=== PATIENT | female | born 1940 | race Caucasian/White ===

== ENCOUNTER 2018-03-02 00:27 | Inpatient (IN) | payer OTHER, MEDICARE ==
[~2018-03-02] VITALS: Ht 149.9 cm; Wt 43.7 kg
--- NOTE | 2018-03-02 00:27 | NUR ---
PATIENT PRESENTS TO ED BIBA WITH SOB. PT DENIES N/V/D; SKIN IS PINK/WARM/DRY; AAOX2 WITH EVEN AND STEADY GAIT; LUNGS CLEAR BL; HR EVEN AND REGULAR; PT DENIES ANY FEVER, CP, OR COUGH AT THIS TIME; PATIENT STATES PAIN OF 0/10 AT THIS TIME; VSS; PATIENT POSITIONED FOR COMFORT; HOB ELEVATED; BEDRAILS UP X2; BED DOWN. ER MD MADE AWARE OF PT STATUS.
[2018-03-02 00:32] VITALS: BP 136/82
--- NOTE | 2018-03-02 00:33 | NUR ---
PT BIBA TO ER BED 02
[2018-03-02 00:35] VITALS: BP 98/65
[2018-03-02] MEDS ORDERED: ALBUTEROL SULFATE/IPRATROPIU 3 ML SOL IH ONE (00:35)
[2018-03-02] MEDS ORDERED: NACL 0.9% 1,000 ML IV ONE (00:35)
--- NOTE | 2018-03-02 00:53 | NUR ---
0048 PLACED PT ON BIPAP IPAP12 EPAP 6 RR 14 FIO2 50%. WILL CONTINUE TO MONITOR
[2018-03-02 01:19] LABS: HEMATOCRIT 30.2 % (36-48); HEMOGLOBIN 9.2 g/dL (12.0-16.0); MEAN CORPUSCULAR HEMOGLOBIN 25 pg (27-31); MEAN CORPUSCULAR HGB CONC 31 g/dL (33-37); MEAN CORPUSCULAR VOLUME 81.9 fL (80-94); PLATELET COUNT (AUTO) 468 K/uL (140-450); RED BLOOD CELL COUNT(AUTO) 3.68 MIL/uL (4.20-5.40); RED CELL DISTRIBUTION WIDTH 27.3 % (11.6-13.7); WHITE BLOOD COUNT (AUTO) 11.4 K/uL (4.8-10.8)
[2018-03-02 01:22] LABS: ALBUMIN 2.3 g/dL (3.4-5.0); ANION GAP 10.7 (8-16); ASPARTATE AMINOTRANSFERASE 25 U/L (15-37); CARBON DIOXIDE 34.6 mmol/L (21-32); CHLORIDE 101 mmol/L (98-107); CREATININE 0.6 mg/dL (0.6-1.3); GLUCOSE 283 mg/dL (74-106); SODIUM SERUM 144 mmol/L (136-145); TOTAL BILIRUBIN 0.3 mg/dL (0.0-1.0); UREA NITROGEN, BLOOD 19 mg/dL (7-18)
[2018-03-02 01:29] LABS: PROTHROMBIN TIME 11.4 secs (10.8-13.4)
[2018-03-02 01:35] LABS: LYMPHOCYTES % (MANUAL) 1 % (20-46)
[2018-03-02 01:35] LABS: APPEARANCE,URINE CLEAR (CLEAR); BILIRUBIN,URINE NEGATIVE (NEGATIVE); BLOOD, URINE NEGATIVE (NEGATIVE); COLOR,URINE YELLOW (YELLOW); LEUKOCYTE ESTERASE ,URINE NEGATIVE (NEGATIVE); NITRITE, URINE NEGATIVE (NEGATIVE); PH,URINE 6.5 (5.0-9.0); UGLUCOSE 3+ (NEGATIVE)
[2018-03-02] MEDS ORDERED: PIPERACILLIN/TAZOBACTAM 3.375 GM in DEXTROSE 5% 50 ML IV ONE (01:40)
[2018-03-02 01:47] LABS: POTASSIUM 2.3 mmol/L (3.5-5.1)
[2018-03-02] MEDS ORDERED: KCL 20 MEQ/WATER INJ PREMIX 200 ML IV ONE (01:50)
[2018-03-02 02:01] LABS: RBC,URINE 0-5 (RARE) /HPF (0-5); WBC,URINE 0-5 (RARE) /HPF (0-5)
--- NOTE | 2018-03-02 02:10 | NUR ---
Tiffany malik in [facility] - 03/02/18 at [address] [facility] TO UPDATE ON PATIENT STATUS,
--- NOTE | 2018-03-02 02:14 | NUR ---
[facility] ROTOR BLADE INSTALLER REFUSED TO USE MEDIPORT ACCESS FOR STAT CT. WILL CONTINUE TO GAIN IV ACCESS
[2018-03-02] MEDS ORDERED: ELA10 PO (02:21)
[2018-03-02] MEDS ORDERED: ATOR40TA PO (02:21)
[2018-03-02] MEDS ORDERED: METO25TE2 PO (02:21)
[2018-03-02] MEDS ORDERED: DOCU-299 PO (02:21)
[2018-03-02] MEDS ORDERED: LEVO0.2T5 PO (02:21)
[2018-03-02] MEDS ORDERED: PANT40EC PO (02:21)
[2018-03-02] MEDS ORDERED: SENN-73 PO (02:21)
[2018-03-02] MEDS ORDERED: FURO-572 PO (02:21)
[2018-03-02] MEDS ORDERED: DULO20EC PO (02:21)
[2018-03-02] MEDS ORDERED: HYDR2TAB6 PO (02:21)
[2018-03-02] MEDS ORDERED: ZOLP10TA1 PO (02:21)
[2018-03-02] MEDS ORDERED: SUCR1TAB35 PO (02:21)
[2018-03-02] MEDS ORDERED: ALBU0.0912 IH (02:21)
[2018-03-02] MEDS ORDERED: ALPR0.252 PO (02:21)
[2018-03-02] MEDS ORDERED: ONDA4TAB PO (02:21)
[2018-03-02] MEDS ORDERED: HYDROcodone/APAP 7.5/325 MG 1 TAB PO PRN (03:15)
[2018-03-02] MEDS ORDERED: ACETAMINOPHEN 325 MG TAB PO PRN (03:15)
[2018-03-02] MEDS ORDERED: ONDANSETRON 4 MG/2 ML VIAL IVP PRN (03:15)
[2018-03-02 03:39] LABS: FREE T4 (FREE THYROXINE) 1.25 ng/dL (0.76-1.46); MAGNESIUM 1.5 mg/dL (1.8-2.4); THYROID STIMULATING HORMONE 2.52 uIU/mL (0.34-3.74)
--- NOTE | 2018-03-02 03:44 | NUR ---
Pt report given to IVAN JORDAN. Transfer of care at this time.
--- NOTE | 2018-03-02 03:45 | NUR ---
RECEIVED PT FROM ED NURSE. NO ACUTE DISTRESS NOTED. WILL CONTINUE TO OBSERVE.
--- NOTE | 2018-03-02 03:50 | NUR ---
PT AAOX2. PT ABLE TO MAKE NEEDS KNOWN. PT CURRENTLY ON BIPAP @ 50% FIO2. DIMINISHED BREATH SOUNDS @ THIS TIME. HR 90-100S, NO EDEMA NOTED. ABD SOFT NON DISTENDED. PT VOIDING IN BEDPAN X1. MEDIPORT NOTED R UPPER CHEST, IV PATENT. NEW PERIPHERAL IV STARTED L HAND. SKIN INTACT, NO ACUTE DISTRESS NOTED WILL CONTINUE TO OBSERVE.
[2018-03-02] MEDS ORDERED: MAG SULF 2000 MG/WATER PREMIX 50 ML IV SCH ×2 (04:35→09:28)
[2018-03-02] MEDS ORDERED: SENNA 8.6 MG TAB PO PRN (04:40)
[2018-03-02] MEDS ORDERED: ALPRAZolam 0.25 MG TAB PO PRN (04:40)
[2018-03-02] MEDS ORDERED: ZOLPIDEM 10 MG TAB PO PRN (04:40)
--- NOTE | 2018-03-02 04:48 | NUR ---
PATIENT ASKED TO BE TAKEN OFF BIPAP AT THIS TIME. PLACED PT ON 3LNC. PT DOES NOT HAVE ANY SOB AT THIS TIME. WILL CONTINUE TO MONITOR PATIENT.
--- NOTE | 2018-03-02 05:45 | NUR ---
DR. HUGHES @ BEDSIDE.
[2018-03-02] MEDS ORDERED: PIPERACILLIN/TAZOBACTAM 2.25 GM in DEXTROSE 5% 50 ML IV SCH (06:00)
[2018-03-02] MEDS ORDERED: PIPERACILLIN/TAZOBACTAM 3.375 GM VIAL IV ONE (06:25)
--- NOTE | 2018-03-02 06:30 | NUR ---
PT TRANSPORTED TO SCAN NURSE AND MONITOR
[2018-03-02] MEDS ORDERED: PIPER/TAZO 3.375GM/D5W PREMIX 50 ML IV SCH (06:40)
--- NOTE | 2018-03-02 07:30 | NUR ---
REPORT GIVEN TO DAY NURSE. NO ACUTE DISTRESS NOTED. PT CURRENTLY AT [facility] FOR VQ SCAN
--- NOTE | 2018-03-02 07:33 | NUR ---
PT OFF UNIT
--- NOTE | 2018-03-02 07:35 | NUR ---
RECEIVED REPORT FROM NIGHT NURSE. PT CURRENTLY AT VQ SCAN. PT IS AAOX2, ABLE TO MAKE NEEDS KNOWN AND FOLLOWS COMMANDS. PT IS [place]. SINUS TACHYCARDIA ON MONITOR. ON O2 AT 6 LPM/NC, O2 SAT 93%. PT C/O SOB WHILE LAYING DOWN DURING VQ SCAN. MEDIPORT NOTED ON RIGHT UPPER CHEST. PERIPHERAL IV G22 TO LEFT HAND PATENT AND INTACT. NO EDEMA NOTED. NO ACUTE DISTRESS AT THIS TIME. WILL CONTINUE TO MONITOR.
--- NOTE | 2018-03-02 07:50 | NUR ---
PT C/O GENERALIZED PAIN AND FEELS ANXIOUS. PAIN AND ANTI-ANXIETY MEDICATIONS ADMINISTERED ORDERED. PT TOLERATED WELL.
[2018-03-02] MEDS: HYDROmorphone 2 MG TAB PO PRN ×2 (07:55→11:56)
[2018-03-02 08:00] VITALS: BP 142/76
--- NOTE | 2018-03-02 08:40 | NUR ---
BACK FROM VQ SCAN. PT C/O SOB. VITAL SIGNS STABLE. PT SEEN BY DR. SANCHEZ AT BEDSIDE. WILL FOLLOW UP ON ORDERS AND CONTINUE TO MONITOR.
--- NOTE | 2018-03-02 08:55 | NUR ---
DR. TUBBS AND RESIDENT GROUP IN TO SEE PT. WILL FOLLOW UP WITH NEW ORDERS.
[2018-03-02] MEDS ORDERED: ATORVASTATIN 20 MG TAB PO SCH (09:00)
[2018-03-02] MEDS ORDERED: AMITRIPTYLINE 10 MG TAB PO SCH (09:00)
[2018-03-02] MEDS ORDERED: PANTOPRAZOLE 40 MG TABEC PO SCH (09:00)
[2018-03-02] MEDS ORDERED: FUROSEMIDE 20 MG TAB PO SCH (09:00)
[2018-03-02] MEDS ORDERED: METOPROLOL SUCCINATE 50 MG TABER PO SCH (09:00)
[2018-03-02] MEDS ORDERED: DULoxetine 30 MG CAPDR PO SCH ×2 (09:00→09:08)
[2018-03-02] MEDS ORDERED: DOCUSATE SODIUM 100 MG GELCAP PO SCH (09:00)
[2018-03-02] MEDS ORDERED: FUROSEMIDE 40 MG/4 ML VIAL IVP SCH (09:00)
[2018-03-02] MEDS: SUCRALFATE 1 GM TAB PO SCH ×2 (09:33→11:56)
--- NOTE | 2018-03-02 10:26 | NUR ---
PATIENT HAS BEEN SCREENED AND CATEGORIZED HIGH NUTRITION RISK. PATIENT WILL BE SEEN WITHIN 1-2 DAYS OF ADMISSION. 03/02/18 - 03/03/[address]
[2018-03-02 10:30] LABS: HEMATOCRIT 30.2 % (36-48); HEMOGLOBIN 9.2 g/dL (12.0-16.0); MEAN CORPUSCULAR HEMOGLOBIN 25 pg (27-31); MEAN CORPUSCULAR HGB CONC 30 g/dL (33-37); MEAN CORPUSCULAR VOLUME 82.1 fL (80-94); PLATELET COUNT (AUTO) 484 K/uL (140-450); RED BLOOD CELL COUNT(AUTO) 3.67 MIL/uL (4.20-5.40)
[2018-03-02] MEDS ORDERED: ZOLPIDEM 5 MG TAB PO PRN (10:45)
--- NOTE | 2018-03-02 10:45 | NUR ---
SON AND BROTHER AT BEDSIDE. UPDATES GIVEN ON PT'S CONDITION. VITAL SIGNS STABLE. SAFETY PRECAUTIONS IN PLACE.
[2018-03-02 10:46] LABS: ANION GAP 7.9 (8-16); CARBON DIOXIDE 34.2 mmol/L (21-32); CHLORIDE 102 mmol/L (98-107); CREATININE 0.5 mg/dL (0.6-1.3); GLUCOSE 146 mg/dL (74-106); POTASSIUM 3.1 mmol/L (3.5-5.1); SODIUM SERUM 141 mmol/L (136-145); UREA NITROGEN, BLOOD 17 mg/dL (7-18)
[2018-03-02 10:49] LABS: LYMPHOCYTES % (MANUAL) 1 % (20-46); MONOCYTES % (MANUAL) 2 % (5-12)
[2018-03-02 10:50] LABS: MAGNESIUM 1.2 mg/dL (1.8-2.4); PHOSPHORUS 3.9 mg/dL (2.5-4.9)
[2018-03-02 12:00] VITALS: BP 140/83
[2018-03-02] MEDS ORDERED: PIPER/TAZO 2.25GM/D5W PREMIX 50 ML IV SCH (12:00)
--- NOTE | 2018-03-02 13:30 | NUR ---
DR. SALCIDO MADE AWARE OF MAGNESIUM LEVEL OF 1.2, ALSO AWARE THAT BLOOD WAS DRAWN BEFORE PT RECEIVED IV MAGNESIUM. WILL FOLLOW UP ON ORDERS.
--- NOTE | 2018-03-02 14:28 | NUR ---
03/02/18 RD INITIAL ASSESSMENT COMPLETED PLEASE REFER TO NUTRITION ASSESSMENT UNDER CARE ACTIVITY FOR ESTIMATED NUTRITIONAL NEEDS. 1. RECOMMEND CLEAR LIQUID DIET TOLERATED 2. RECOMMEND NUTRITION SUPPORT: PPN D 12.5%, AA 4.25% @ 60 ML/HR WITH 10% LIPIDS AT 125 ML VIA PERIPHERAL LINE, PER MD AND PHARMACIST. PROVIDES 1107 KCAL, 61 GM PROTEIN, TOTAL VOLUME 1440 ML, GIR 2.8 MG CHO/KG/MIN. MEETS 85% PT ENERGY NEEDS, 87% PT PROTEIN NEEDS. 3. RD TO FOLLOW-UP 2-3 DAYS, HIGH RISK XIMENA ROSALES RD
[2018-03-02] MEDS ORDERED: NACL 0.9% 1,000 ML IV SCH (14:35)
--- NOTE | 2018-03-02 14:50 | NUR ---
DR. SALCIDO AT BEDSIDE SPEAKING WITH PT AND WITH PT'S BROTHER ON PHONE. WILL FOLLOW UP.
--- NOTE | 2018-03-02 15:45 | NUR ---
PT AND BROTHER, ART, SIGNED AMA FORM, AND WENT HOME VIA PRIVATE VEHICLE. VITAL SIGNS STABLE, NO S/SX OF ACUTE DISTRESS UPON DISCHARGE.
[2018-03-02 15:50] VITALS: BP 148/91
[2018-03-03] MEDS ORDERED: DULoxetine 30 MG CAPDR PO SCH (09:00)
[2018-03-03 15:09] LABS: FOLIC ACID 11.1 ng/mL (>3.0)
== END 2018-03-02 15:45 | disposition left against medical advice (07) | DRG 871 ==
LOC: MED 00:56 → MIC 03:15
PROVIDERS: ADMIT Family Medicine Sports Medicine; ATTEND Family Medicine Sports Medicine
PROC: 5A09357 Assistance with Respiratory Ventilation, Less than 24 Consecutive Hours, Continuous Positive Airway Pressure (ICD-10-PCS; principal; 2018-03-02)
DX: A41.9 Sepsis, unspecified organism (principal); E43 Unspecified severe protein-calorie malnutrition; J96.01 Acute respiratory failure with hypoxia; N17.0 Acute kidney failure with tubular necrosis; J15.6 Pneumonia due to other Gram-negative bacteria; C25.9 Malignant neoplasm of pancreas, unspecified; I50.43 Acute on chronic combined systolic (congestive) and diastolic (congestive) heart failure; D64.9 Anemia, unspecified; Z68.1 Body mass index [BMI] 19.9 or less, adult; E83.42 Hypomagnesemia; M62.50 Muscle wasting and atrophy, not elsewhere classified, unspecified site; E87.6 Hypokalemia; F41.9 Anxiety disorder, unspecified; E78.5 Hyperlipidemia, unspecified; E11.65 Type 2 diabetes mellitus with hyperglycemia; I25.5 Ischemic cardiomyopathy; I25.10 Atherosclerotic heart disease of native coronary artery without angina pectoris; Z53.21 Procedure and treatment not carried out due to patient leaving prior to being seen by health care provider; M79.7 Fibromyalgia; Z85.028 Personal history of other malignant neoplasm of stomach; Z85.42 Personal history of malignant neoplasm of other parts of uterus; Z86.73 Personal history of transient ischemic attack (TIA), and cerebral infarction without residual deficits; Z87.11 Personal history of peptic ulcer disease; Z87.891 Personal history of nicotine dependence; Z88.5 Allergy status to narcotic agent; Z88.8 Allergy status to other drugs, medicaments and biological substances; I25.2 Old myocardial infarction; Z95.810 Presence of automatic (implantable) cardiac defibrillator; Z90.710 Acquired absence of both cervix and uterus; Z90.49 Acquired absence of other specified parts of digestive tract; Z90.11 Acquired absence of right breast and nipple; Z91.018 Allergy to other foods; Z66 Do not resuscitate
CPT/HCPCS: 36415; 36600; 71045; 78582; 80048; 80053; 81001; 82150; 82607; 82728; 82746; 82803; 83036; 83540; 83605; 83690; 83735; 83880; 84100; 84439; 84443; 84484; 85025; 85045; 85610; 85730; 87040; 87081; 87186; 93005; 94640; 94660; 96360; 99291; C1758; J1940; J2543; J3475; J3480; J7030; J7060; J7620

== ENCOUNTER 2018-03-02 22:46 | Inpatient (IN) | payer OTHER, MEDICARE ==
[~2018-03-02] VITALS: Ht 165.1 cm; Wt 40.4 kg
[~2018-03-02 22:46] MED LIST: ALBU0.0912 IH; ALPR0.252 PO; ATOR40TA PO; DOCU-299 PO; DULO20EC PO; ELA10 PO; FURO-572 PO; HYDR2TAB6 PO; LEVO0.2T5 PO; METO25TE2 PO; ONDA4TAB PO; PANT40EC PO; SENN-73 PO; SUCR1TAB35 PO; ZOLP10TA1 PO
[2018-03-02 22:50] VITALS: BP 128/79
--- NOTE | 2018-03-02 22:50 | NUR ---
Pt presents to ER with SOB and Dyspnea. Arrived via EMS from home. Pt was admitted to ICU on 03/01/18 and discharged today. Pt has retractions with shallow rappid even breaths. Skin is pale and dry. Awake but unable to verbalize d/t sob. Wheezes and diminished lung sounds heard bilaterally. ER MD made aware. Respiratory at bedside. Continue to monitor.
[2018-03-02] MEDS ORDERED: ALBUTEROL 0.083% 2.5 MG/3 ML NEBU INH ONE (23:10)
[2018-03-02 23:11] VITALS: BP 132/73
[2018-03-03] MEDS ORDERED: fentaNYL 0.05 MG/ML VIAL IVP ONE (00:30)
[2018-03-03 00:47] LABS: HEMATOCRIT 28.4 % (36-48); HEMOGLOBIN 8.9 g/dL (12.0-16.0); MEAN CORPUSCULAR HEMOGLOBIN 26 pg (27-31); MEAN CORPUSCULAR HGB CONC 31 g/dL (33-37); MEAN CORPUSCULAR VOLUME 81.6 fL (80-94); PLATELET COUNT (AUTO) 405 K/uL (140-450); RED BLOOD CELL COUNT(AUTO) 3.49 MIL/uL (4.20-5.40)
[2018-03-03] MEDS ORDERED: HYDROcodone/APAP 7.5/325 MG 1 TAB PO PRN (00:55)
[2018-03-03 00:59] LABS: WHITE BLOOD COUNT (AUTO) 16.8 K/uL (4.8-10.8)
[2018-03-03 01:00] LABS: RED CELL DISTRIBUTION WIDTH 27.2 % (11.6-13.7)
[2018-03-03 01:01] LABS: LYMPHOCYTES % (MANUAL) 0 % (20-46); MONOCYTES % (MANUAL) 1 % (5-12)
[2018-03-03 01:03] LABS: ALBUMIN 2.2 g/dL (3.4-5.0); ANION GAP 11.7 (8-16); ASPARTATE AMINOTRANSFERASE 39 U/L (15-37); CARBON DIOXIDE 33.1 mmol/L (21-32); CHLORIDE 101 mmol/L (98-107); CREATININE 0.6 mg/dL (0.6-1.3); GLUCOSE 260 mg/dL (74-106); SODIUM SERUM 143 mmol/L (136-145); TOTAL BILIRUBIN 0.3 mg/dL (0.0-1.0); UREA NITROGEN, BLOOD 25 mg/dL (7-18)
[2018-03-03 01:09] LABS: PROTHROMBIN TIME 12.1 secs (10.8-13.4)
--- NOTE | 2018-03-03 01:22 | NUR ---
Critical lab recieved from laborator: Troponin 0.[address] Fung notified immediately.
[2018-03-03 01:23] LABS: POTASSIUM 2.8 mmol/L (3.5-5.1)
[2018-03-03 01:39] LABS: MAGNESIUM 1.8 mg/dL (1.8-2.4); PHOSPHORUS 3.6 mg/dL (2.5-4.9)
[2018-03-03 01:45] VITALS: BP 108/68
--- NOTE | 2018-03-03 01:45 | NUR ---
RECEIVED PATIENT REPORT AT BEDSIDE FROM ER NURSE. PATIENT AAO X2. PATIENT ON BIPAP SETTING IPAP 10 EPAP 5. FIO2 50%. . RT AT BEDSIDE. NO S/S OF DISTRESS. NO SOB AT THIS TIME. MEDIPORT IN RIGHT UPPER CHEST. SKIN TEAR AND BRUISING NOTED ON LEFT ARM PICTURE TAKEN. BED LOWERED CALL LIGHT IN REACH. MRSA NARES TAKEN PROTOCOL AND SEND TO THE LAB. DAUGHTER HELPED WITH ADMITTING INFORMATION. DR WING AT BEDSIDE. WILL CONTINUE TO MONITOR.
--- NOTE | 2018-03-03 02:00 | NUR ---
Report given and care transfered to Carla RN room 122A. VSS
[2018-03-03] MEDS ORDERED: HYDROmorphone 2 MG TAB PO PRN (02:45)
[2018-03-03] MEDS ORDERED: ALPRAZolam 0.25 MG TAB PO PRN (02:45)
[2018-03-03] MEDS ORDERED: ZOLPIDEM 10 MG TAB PO PRN (02:45)
[2018-03-03] MEDS ORDERED: FUROSEMIDE 20 MG/2 ML VIAL IVP ONE (02:55)
[2018-03-03] MEDS ORDERED: KCL 20 MEQ/WATER INJ PREMIX 200 ML IV SCH (03:00)
--- NOTE | 2018-03-03 03:00 | NUR ---
ON BIPAP. NO S/S OF DISTRESS. NO SOB AT THIS TIME. MEDICATED PT WITH K-RIDER AND LASIX ORDERED. ON TELE RHYTUM ST.
[2018-03-03 04:00] VITALS: BP 90/54
--- NOTE | 2018-03-03 04:05 | NUR ---
WENT TO REPOSITIONED PT. CHANGED BED LINEN. WILL CONTINUE TO MONITOR.
--- NOTE | 2018-03-03 05:00 | NUR ---
RT CAME TO SEE PATIENT. PT IS STABLE NO DISTRESS NO SOB ON TELE SR. WILL CONTINUE TO MONITOR. AND REPOSITIONED Q2HRS.
--- NOTE | 2018-03-03 07:31 | NUR ---
GAVE REPORT TO DAY SHIFT DERRELL RN NURSE AT BEDSIDE FOR CONTINUITY OF CARE.
--- NOTE | 2018-03-03 07:32 | NUR ---
RECEIVED REPORT FROM C WINFORMS DEVELOPER NURSE SAEED AT BEDSIDE FOR CONTINUITY OF CARE. PT IS ASLEEP. AWAKES WHEN CALLED. INTRODUCED SELF AND UPDATED BOARD. PT ON BIPAP. RR 18. NO SOB. O2 SAT95%. LUNG SOUNDS CLEAR ON AUSCULTATION. PT DENIES PAIN. L ARM SKIN TEARS AND BUE SCABS AND BRUISES NOTED. MEDIPORT TO R UPPER CHEST INTACT WITH NS @5ML/HR. PT WENT BACK TO SLEEP. BREAKFAST TRAY AT TABLE. NO COMPLAINTS AT THIS TIME. BED IN LOW POSITION, WHEELS LOCKED, CALL LIGHT WITHIN REACH. WILL CONTINUE TO MONITOR.
[2018-03-03 08:00] VITALS: BP 98/57
--- NOTE | 2018-03-03 08:40 | NUR ---
PLACED PT ON 4LPM NC HR 95 SAT 100 RR 18. WILL CONT TO MONITOR PT.
[2018-03-03] MEDS: ATORVASTATIN 20 MG TAB PO SCH (08:51)
[2018-03-03] MEDS: PANTOPRAZOLE 40 MG TABEC PO SCH (08:51)
[2018-03-03] MEDS: AMITRIPTYLINE 10 MG TAB PO SCH (08:51)
[2018-03-03] MEDS: DOCUSATE SODIUM 100 MG GELCAP PO SCH ×2 (08:51→20:41)
[2018-03-03] MEDS: METOPROLOL SUCCINATE 50 MG TABER PO SCH (08:52)
[2018-03-03] MEDS: DULoxetine 30 MG CAPDR PO SCH (08:52)
[2018-03-03] MEDS: SENNA 8.6 MG TAB PO SCH (08:52)
[2018-03-03] MEDS: SUCRALFATE 1 GM TAB PO SCH (08:52)
--- NOTE | 2018-03-03 08:52 | NUR ---
ADMINISTERED SCHEDULED MEDS. PT TOLERATED MEDS WELL. PT REFUSED TO EAT BREAKFAST TRAY. STATED SHE DID NOT LIKE IT AND SAID "I WILL EAT LATER" ON NC 4L/MIN. O2 SAT 100%. NO SIGNS OF DISTRESS. PT WENT BACK TO SLEEP. WILL CONTINUE TO MONITOR.
[2018-03-03] MEDS: FUROSEMIDE 20 MG TAB PO SCH (08:53)
[2018-03-03] MEDS ORDERED: DOCUSATE SODIUM 100 MG GELCAP PO SCH (09:00)
--- NOTE | 2018-03-03 10:29 | NUR ---
PATIENT HAS BEEN SCREENED AND CATEGORIZED HIGH NUTRITION RISK. PATIENT WILL BE SEEN WITHIN 1-2 DAYS OF ADMISSION. 03/03/18 - 03/04/[address]
[2018-03-03 12:00] VITALS: BP 104/62
[2018-03-03] MEDS ORDERED: TPN PER PHARMACY MC PRN (12:20)
[2018-03-03] MEDS: DEXT 5% / NACL 0.45% 1,000 ML IV SCH (12:54)
--- NOTE | 2018-03-03 13:14 | NUR ---
REPORTED TO DR. SALCIDO THAT PT REFUSING BISHOP CATHETER INSERT. PT ASKED TO SPEAK TO
--- NOTE | 2018-03-03 14:44 | NUR ---
03/03/18 RD INITIAL ASSESSMENT COMPLETED PLEASE REFER TO NUTRITION ASSESSMENT UNDER CARE ACTIVITY FOR ESTIMATED NUTRITIONAL NEEDS. 1. RECOMMEND CLEAR LIQUID DIET TOLERATED 2. RECOMMEND NUTRITION SUPPORT: PPN D 12.5%, AA 4.25% @ 60 ML/HR WITH 10% LIPIDS AT 125 ML VIA PERIPHERAL LINE, PER MD AND PHARMACIST. PROVIDES 1107 KCAL, 61 GM PROTEIN, TOTAL VOLUME 1440 ML, GIR 2.8 MG CHO/KG/MIN. MEETS 85% PT ENERGY NEEDS, 87% PT PROTEIN NEEDS. 3. RD TO FOLLOW-UP 2-3 DAYS, HIGH RISK XIMENA ROSALES RD
[2018-03-03 16:00] VITALS: BP 110/60
[2018-03-03] MEDS: CHLORHEXADINE GLUC 2% CLOTH TP SCH (16:36)
[2018-03-03] MEDS: MUPIROCIN 2% OINT 22 GM TUBE TP SCH (16:36)
--- NOTE | 2018-03-03 18:50 | NUR ---
DR. KENDALL AND DR. HILL CAME IN AND SPOKE WITH PT AND PT'S DAUGHTER.
[2018-03-03] MEDS: HYDROcodone/APAP 10/325 MG 1 TAB TAB PO PRN (18:53)
--- NOTE | 2018-03-03 19:25 | NUR ---
RECEIVED FROM AM RN IN BED AWAKE AND PT.DAUGHTER IN HERE WATCHING OVER HER. PT. ABLE TO VERBALIZE NEEDS WELL. NO SOB AT THIS TIME. NO PAIN AT THIS TIME. RE-ORIENTED TO CALL LIGHT USE FOR HELP AND CARE PLANS FOR THE NIGHT DISCUSSED WITH LETTY. TELEMETRY MONITORING.
--- NOTE | 2018-03-03 19:25 | NUR ---
ENDORSED TO CLIENT EXECUTIVE NURSE ZACH AT BEDSIDE FOR CONTINUITY OF CARE. PT IN STABLE CONDITION,
[2018-03-03 20:38] VITALS: BP 118/65
[2018-03-03] MEDS ORDERED: HYDROmorphone 2 MG TAB ONE (20:39)
[2018-03-03] MEDS: PIPER/TAZO 2.25GM/D5W PREMIX 50 ML IV SCH (20:41)
[2018-03-03] MEDS: HYDROmorphone 2 MG TAB PO SCH (20:41)
--- NOTE | 2018-03-03 21:50 | NUR ---
EDVIN AND ABLE TO TALK WITH RESIDENT MD RE: PT. TALKED WITH HER EARLIER THAT SHE NEEDS HER DILAUDID P.O. TIMING CHANGED FROM Q 8H TO Q 6H. RESIDENT MD STATED THAT SHE WILL CHANGE IT.
--- NOTE | 2018-03-03 22:03 | NUR ---
PT. SLEEPING AT THIS TIME. DAUGHTER LEFT. P.O. DILAUDID GIVEN EFFECTIVE FOR HER. TELEMETRY MONITORING.
--- NOTE | 2018-03-03 22:58 | NUR ---
RESIDENT MD FRANCISCO INFORMED OF LAB RESULT FOR BLOOD CULTURE FINDINGS GRAM POSITIVE COCCI IN PAIRS AND CHAINS SEEN. AWARE. NO ORDERS GIVEN.
[2018-03-04] VITALS (7 sets, daily range): BP systolic 114–140; BP diastolic 67–85
[2018-03-04] MEDS: HYDROmorphone 2 MG TAB PO SCH ×5 (00:29→23:49)
--- NOTE | 2018-03-04 00:30 | NUR ---
PT. REQUESTED FOR PAIN RELIEVER. "I FEEL PAIN NOW" MEDICATED WITH DILAUDID P.O. ORDERED. ENCOURAGED TO USE CALL LIGHT FOR ANY HELP SHE MAY NEED. RE-ORIENTED TO CALL LIGHT USE. BED ALARM ON.
--- NOTE | 2018-03-04 02:37 | NUR ---
PT. ASSISTED TO TURN TO SIDES BY FLIGHT OPERATIONS DISPATCH CLERK. PILLOW SUPPORT TO PRESSURE AREAS. NO COMPLAINTS DONE. TELEMETRY MONITORING. CALL LIGHT WITH IN REACH.
[2018-03-04] MEDS: PIPER/TAZO 2.25GM/D5W PREMIX 50 ML IV SCH ×3 (05:10→20:37)
[2018-03-04 06:25] LABS: BASOPHILS % (AUTO) 0.1 % (0.0-2.0); EOSINOPHILS # (AUTO) 0.3 K/uL (0-0.4); EOSINOPHILS % (AUTO) 3.1 % (0.0-4.0); HEMATOCRIT 27.9 % (36-48); HEMOGLOBIN 8.8 g/dL (12.0-16.0); LYMPHOCYTES # (AUTO) 1.2 K/uL (2.5-16.5); LYMPHOCYTES % (AUTO) 11.8 % (20.5-51.1); MEAN CORPUSCULAR HEMOGLOBIN 26 pg (27-31); MEAN CORPUSCULAR HGB CONC 32 g/dL (33-37); MEAN CORPUSCULAR VOLUME 82.3 fL (80-94); MONOCYTES # (AUTO) 0.6 K/uL (0.8-1.0); MONOCYTES % (AUTO) 5.8 % (1.7-9.3); NEUTROPHILS # (AUTO) 8.2 K/uL (1.8-7.7); NEUTROPHILS % (AUTO) 79.2 % (42.2-75.2); PLATELET COUNT (AUTO) 376 K/uL (140-450); RED BLOOD CELL COUNT(AUTO) 3.39 MIL/uL (4.20-5.40); RED CELL DISTRIBUTION WIDTH 27.3 % (11.6-13.7); WHITE BLOOD COUNT (AUTO) 10.4 K/uL (4.8-10.8)
--- NOTE | 2018-03-04 06:43 | NUR ---
SLEEPING AT THIS TIME. CALL LIGHT WITH IN REACH. BLOOD SPECIMEN TAKEN . MEDI PORT IN PLACE AND PATENT. NO BLEEDING NOTED. NEEDS ANTICIPATED AND MET. MAXIMUM CARE. TELEMETRY MONITORING.
[2018-03-04 07:15] LABS: ALBUMIN 2.1 g/dL (3.4-5.0); ANION GAP 10.2 (8-16); ASPARTATE AMINOTRANSFERASE 34 U/L (15-37); CARBON DIOXIDE 33.8 mmol/L (21-32); CHLORIDE 100 mmol/L (98-107); CREATININE 0.4 mg/dL (0.6-1.3); GLUCOSE 110 mg/dL (74-106); SODIUM SERUM 141 mmol/L (136-145); TOTAL BILIRUBIN 0.2 mg/dL (0.0-1.0); UREA NITROGEN, BLOOD 22 mg/dL (7-18)
--- NOTE | 2018-03-04 07:20 | NUR ---
Patient's Plan of Care was discussed and reviewed with FIRE ADJUSTER: PRACHI Ho
[2018-03-04 07:21] LABS: MAGNESIUM 1.6 mg/dL (1.8-2.4); PHOSPHORUS 3.1 mg/dL (2.5-4.9)
--- NOTE | 2018-03-04 08:20 | NUR ---
PT. SON -ART CAME. EXPLAINED AND EDUCATED ABOUT CONTACT ISOLATION PRECAUTION FOR MRSA NARES POSITIVE. PT. SON -ART VERBALIZED UNDERSTANDING. PT. SON -ART WEAR GOWN, GLOVES, AND MASK BEFORE ENTERING PT. ROOM.
[2018-03-04] MEDS: PANTOPRAZOLE 40 MG TABEC PO SCH (08:45)
[2018-03-04] MEDS: ATORVASTATIN 20 MG TAB PO SCH (08:45)
[2018-03-04] MEDS: SUCRALFATE 1 GM TAB PO SCH (08:46)
[2018-03-04] MEDS: DOCUSATE SODIUM 100 MG GELCAP PO SCH ×2 (08:47→20:36)
[2018-03-04] MEDS: METOPROLOL SUCCINATE 50 MG TABER PO SCH (08:47)
[2018-03-04] MEDS: AMITRIPTYLINE 10 MG TAB PO SCH (08:48)
[2018-03-04] MEDS: SENNA 8.6 MG TAB PO SCH (08:48)
[2018-03-04] MEDS: FUROSEMIDE 20 MG TAB PO SCH (08:48)
[2018-03-04] MEDS: DULoxetine 30 MG CAPDR PO SCH (09:00)
[2018-03-04] MEDS: HYDROcodone/APAP 10/325 MG 1 TAB TAB PO PRN ×2 (09:15→21:44)
--- NOTE | 2018-03-04 09:45 | NUR ---
FLACA FROM PHARMACY SPOKE TO PT. SON -ART VIA PHONE REGARDING PT. TPN AT HOME.
--- NOTE | 2018-03-04 10:15 | NUR ---
DR. SANCHEZ CAME, REVIEWED PT. CHART.
--- NOTE | 2018-03-04 10:19 | NUR ---
INFORMED DR. SALCIDO ABOUT PT. K 3.0, MAG 1.6, AND PT. 60G CCHO DIET.
[2018-03-04] MEDS: ALPRAZolam 0.25 MG TAB PO PRN ×2 (10:25→18:44)
--- NOTE | 2018-03-04 11:00 | NUR ---
DR. SALCIDO WENT INSIDE PT. ROOM AND SPOKE TO PT. AT BEDSIDE.
[2018-03-04] MEDS ORDERED: MAG SULF 2000 MG/WATER PREMIX 50 ML IV SCH ×2 (11:08→18:00)
--- NOTE | 2018-03-04 11:45 | NUR ---
INFECTION NURSE SPOKE TO PT. FAMILY MEMBER -XIAO AND EXPLAINED AND EDUCATED ABOUT INFECTION CONTROL, CONTACT ISOLATION PRECAUTION FOR MRSA NARES POSITIVE. PT. FAMILY MEMBER -XIAO VERBALIZED UNDERSTANDING.
--- NOTE | 2018-03-04 11:54 | NUR ---
PARTY PLAN SALES AGENT -BETO WENT INSIDE PT. ROOM AND SPOKE TO PT. AND PT. FAMILY MEMBER -XIAO AT BEDSIDE.
[2018-03-04] MEDS: DEXT 5% / NACL 0.45% 1,000 ML IV SCH (13:41)
[2018-03-04] MEDS ORDERED: POTASSIUM CHLORIDE 40 MEQ, LIDOCAINE 1% 25 MG in NACL 0.9% 250 ML IV SCH (14:00)
[2018-03-04] MEDS: MUPIROCIN 2% OINT 22 GM TUBE TP SCH (16:16)
[2018-03-04] MEDS: CHLORHEXADINE GLUC 2% CLOTH TP SCH (16:17)
[2018-03-04] MEDS ORDERED: HYDR2TAB6 PO (17:16)
[2018-03-04] MEDS ORDERED: CHLO118S2 TP (17:16)
[2018-03-04] MEDS ORDERED: ATOR20TA40 PO (17:16)
[2018-03-04] MEDS ORDERED: ACET-1182 PO (17:16)
[2018-03-04] MEDS ORDERED: FURO20TA8 PO (17:16)
[2018-03-04] MEDS ORDERED: SENN-89 PO (17:16)
[2018-03-04] MEDS ORDERED: ZOLP10TA1 PO (17:16)
[2018-03-04] MEDS ORDERED: NORC10 PO (17:16)
[2018-03-04] MEDS ORDERED: METO50TE2 PO (17:16)
[2018-03-04] MEDS ORDERED: BACTO TP (17:16)
[2018-03-04] MEDS ORDERED: ONDA2SOL45 IVP (17:16)
[2018-03-04] MEDS ORDERED: HUMSLIDE SUBQ (17:16)
[2018-03-04] MEDS ORDERED: DOCU-299 PO (17:16)
[2018-03-04] MEDS ORDERED: PANT40EC28 PO (17:16)
[2018-03-04] MEDS ORDERED: GLUC-805 MC (17:16)
[2018-03-04] MEDS ORDERED: SUCR1TAB56 PO (17:16)
[2018-03-04] MEDS ORDERED: ALPR0.2518 PO (17:16)
[2018-03-04] MEDS ORDERED: Tpn Per Pharmacy MC (17:16)
[2018-03-04] MEDS ORDERED: ELA10 PO (17:16)
--- NOTE | 2018-03-04 17:58 | NUR ---
DR. HILL CAME, REVIEWED PT. CHART AND SEEN PT..
--- NOTE | 2018-03-04 18:00 | NUR ---
Dr. Rosas spoke with Dr. Montero at [facility] and accepted the patient to be transfer for possible surgery for her pancreatic cancer. Dr. Rosas spoke to me to arrange a bed. I called [facility] and spoke to Kenzie at the transfer center and was given the information related to transfer , Kenzie informed me that want H&P, face sheet, physician progress notes and order to be faxed to her at [phone] Montero wants the patient to be transfer Thursday. Dr. Rosas made aware.
--- NOTE | 2018-03-04 18:07 | NUR ---
Correction: [facility] not [facility].
--- NOTE | 2018-03-04 19:10 | NUR ---
REPORT GIVEN TO ZACH BOLDEN. IVF INFUSING WELL. IN STABLE CONDITION.
--- NOTE | 2018-03-04 19:28 | NUR ---
RECEIVED FROM AM NURSE AWAKE AND ALERT. DAUGHTER , SON AND DAUGHTER IN LAW AT BEDSIDE. CALL LIGHT WITH IN REACH. NO SOB AT THIS TIME. 02 SAT AT 97% WITH 02 PER N /C. PT. CARE PLANS FOR THE NIGHT DISCUSSED WITH HER. TELEMETRY MONITORING. IVF SITE INTACT AND NO INFILTRATION. DENIES PAIN AT THIS TIME. ENCOURAGED TO CALL IF WITH PAIN.
[2018-03-04] MEDS: ZOLPIDEM 10 MG TAB PO PRN (20:18)
[2018-03-04] MEDS: MULTIVITAMIN-12 10 ML in DEXTROSE 50% 480 ML, AMINO ACIDS 8.5% 480 ML IV SCH ×3 (20:20)
[2018-03-04] MEDS: DULOXETINE 20 MG PO SCH (20:35)
--- NOTE | 2018-03-04 20:51 | NUR ---
PAGED RESPIRATORY THERAPIST RT PT. COMPLAINED OF HARD TO BREATH. NOTED O2 GOES DOOWN FROM 96 % TO 87 % WITH 02 OF 4 LITERS. RESPIRATORY THERAPIST IN HERE TO ADJUST 02 AND CHANGE OF TUBING.
--- NOTE | 2018-03-04 21:00 | NUR ---
CALLED TO BEDSIDE FOR LOW 02 SATURATION, LOW PERFUSION READING DUE TO NAIL FAROESE, CHANGED PULSE OXIMETER SITE AND PLACED PT ON 7LPM OXIMIZER AT THIS TIME, PT 02 SAT 94-99%, WILL CONTINUE TO MONITOR AND TITRATE FIO2 ACCORDINGLY.
--- NOTE | 2018-03-04 22:46 | NUR ---
BLOOD PRESSURE AT THIS TIME 170/96. MORE RESTED AND LESS ANXIOUS RT DAUGHTER IN HERE TO PACIFY HER. MEDICATED WITH NORCO TAB. EARLIER REQUESTED BY PT.
--- NOTE | 2018-03-04 23:14 | NUR ---
PT. SLEEPING AT THIS TIME. DAUGHTER AT BEDSIDE HOLDING PT. TELEMETRY MONITORING.
[2018-03-04] MEDS: BLOOD GLUCOSE MONITORING 1 DEV DEV MC SCH (23:49)
[2018-03-04] MEDS ORDERED: diphenhydrAMINE 50 MG/ML VIAL IVP ONE (23:55)
--- NOTE | 2018-03-05 00:49 | NUR ---
DAUGHTER LEFT FOR HOME AND PT. SLEEPING STILL. TELEMETRY MONITORING. NO RESTLESSNESS AT THIS TIME. CALL LIGHT WITH N REACH. MONITORED CLOSELY. A/O X 4. ABLE TO USE CALL LIGHT WHEN AWAKE FOR HELP.
--- NOTE | 2018-03-05 03:39 | NUR ---
PT. WOKE UP AT THIS TIME. REQUESTED TO BE CLEANED UP RT WENT BM. KEPT CLEAN AND DRY. SLEPT BACK. NO COMPLAINT OF ANY PAIN AT THIS TIME. HELD BENADRYL IV ORDERED AT THIS TIME RT WENT BACK TO SLEEP IMMEDIATELY AFTER BEING CLEANED UP. TELEMETRY MONITORING. .
[2018-03-05 04:00] VITALS: BP 118/72
[2018-03-05] MEDS: HYDROmorphone 2 MG TAB PO SCH ×3 (05:29→17:13)
[2018-03-05] MEDS: PIPER/TAZO 2.25GM/D5W PREMIX 50 ML IV SCH ×3 (05:29→21:17)
[2018-03-05] MEDS: BLOOD GLUCOSE MONITORING 1 DEV DEV MC SCH ×3 (05:50→17:35)
--- NOTE | 2018-03-05 05:51 | NUR ---
PT. MEDICATED WITH DILAUDID P.O. ORDERED. ABLE TO VERBALIZE NEEDS WELL. NEEDS ANTICIPATED AND MET. TOTAL CARE AT THIS TIME RT GENERALIZED WEAKNESS. GOOD AFFECT. ENCOURAGED TO GO BACK TO SLEEP RT STILL EARLY. "OK"
--- NOTE | 2018-03-05 06:00 | NUR ---
TPN FEEDING WAS 480 ML THE WHOLE SHIFT.
[2018-03-05 06:10] LABS: BASOPHILS % (AUTO) 0.3 % (0.0-2.0); EOSINOPHILS % (AUTO) 0.3 % (0.0-4.0); HEMOGLOBIN 9.6 g/dL (12.0-16.0); LYMPHOCYTES # (AUTO) 1.3 K/uL (2.5-16.5); MEAN CORPUSCULAR HEMOGLOBIN 26 pg (27-31); MEAN CORPUSCULAR HGB CONC 31 g/dL (33-37); MEAN CORPUSCULAR VOLUME 82.3 fL (80-94); MONOCYTES # (AUTO) 0.6 K/uL (0.8-1.0); MONOCYTES % (AUTO) 7.2 % (1.7-9.3); NEUTROPHILS # (AUTO) 6.6 K/uL (1.8-7.7); NEUTROPHILS % (AUTO) 77.2 % (42.2-75.2); PLATELET COUNT (AUTO) 424 K/uL (140-450); RED BLOOD CELL COUNT(AUTO) 3.77 MIL/uL (4.20-5.40); RED CELL DISTRIBUTION WIDTH 27.4 % (11.6-13.7); WHITE BLOOD COUNT (AUTO) 8.6 K/uL (4.8-10.8)
[2018-03-05 06:24] LABS: MAGNESIUM 2.3 mg/dL (1.8-2.4); PHOSPHORUS 4.2 mg/dL (2.5-4.9)
[2018-03-05 06:40] LABS: ALBUMIN 2.3 g/dL (3.4-5.0); ANION GAP 12.7 (8-16); ASPARTATE AMINOTRANSFERASE 35 U/L (15-37); CARBON DIOXIDE 31.2 mmol/L (21-32); CHLORIDE 100 mmol/L (98-107); CREATININE 0.4 mg/dL (0.6-1.3); GLUCOSE 160 mg/dL (74-106); POTASSIUM 3.9 mmol/L (3.5-5.1); SODIUM SERUM 140 mmol/L (136-145); TOTAL BILIRUBIN 0.2 mg/dL (0.0-1.0); UREA NITROGEN, BLOOD 19 mg/dL (7-18)
[2018-03-05] MEDS: ALPRAZolam 0.25 MG TAB PO PRN (07:38)
--- NOTE | 2018-03-05 07:40 | NUR ---
RECEIVED PT FROM PM RN, PT AWAKE, ALERT. ON OXIMIZER BEDSIDE O2 SATS SHOWS 92%, PT REPORTED SHE HAS ANXIETY, ASKED ME TO HOLD HER HANDS FOR FEW MINUTES. XANAX GIVEN, COMFORTED PT AND TAUGHT PT TO DO DEEP BREATH. PT HAS MEDIPORT TO RIGHT UPPER CHEST RUNNING TPN AT 40 ML/HR, SITE INTACT AND PATENT. SKIN INTACT BUT SOME OLD BRUISE NOTED TO BOTH UPPER EXTREMITIES. CALL LIGHT IN PLACE, POC EXPLAINED TO PT, PT VERBALIZED UNDERSTANDING, WILL CONTINUE TO MONITOR PT.
--- NOTE | 2018-03-05 07:45 | NUR ---
PT HAS SKIN TEAR TO LEFT ARM.
--- NOTE | 2018-03-05 07:53 | NUR ---
ENDORSED TO THE NEXT RN FOR CONTINUITY OF CARE. AWAKE AND ALERT. VERBALIZES SIMPLE NEEDS WELL. NO PAIN COMPLAINTS DONE. MEDICATED WITH PAIN RELIEVER TIMED.
[2018-03-05 08:00] VITALS: BP 122/78
--- NOTE | 2018-03-05 08:30 | NUR ---
PT REFUSED TO EAT BREAKFAST. PT'S BROTHER AT BEDSIDE.
[2018-03-05] MEDS: DULOXETINE 20 MG PO SCH ×2 (08:54→21:00)
[2018-03-05] MEDS: FUROSEMIDE 20 MG TAB PO SCH (08:54)
[2018-03-05] MEDS: METOPROLOL SUCCINATE 50 MG TABER PO SCH (08:55)
[2018-03-05] MEDS: SUCRALFATE 1 GM TAB PO SCH (08:55)
[2018-03-05] MEDS: PANTOPRAZOLE 40 MG TABEC PO SCH (08:56)
[2018-03-05] MEDS: ATORVASTATIN 20 MG TAB PO SCH (08:56)
[2018-03-05] MEDS: SENNA 8.6 MG TAB PO SCH (08:56)
[2018-03-05] MEDS: DOCUSATE SODIUM 100 MG GELCAP PO SCH ×2 (08:58→21:17)
[2018-03-05] MEDS: AMITRIPTYLINE 10 MG TAB PO SCH (09:45)
[2018-03-05] MEDS: HYDROcodone/APAP 10/325 MG 1 TAB TAB PO PRN ×2 (09:45→21:17)
--- NOTE | 2018-03-05 10:23 | NUR ---
DR. SANCHEZ IN TO SEE PT, UPDATED PT'S CONDITION.
--- NOTE | 2018-03-05 11:30 | NUR ---
CHARGE NURSE SHAUN INSERTED IV TO LEFT AC # 20
[2018-03-05] MEDS: INSULIN LISPRO SLIDING SCALE 100 UNITS/ML VIAL SUBQ PRN ×2 (11:35→17:42)
[2018-03-05 12:00] VITALS: BP 128/75
--- NOTE | 2018-03-05 13:33 | NUR ---
03/06/16 RD FOLLOW UP COMPLETED PLEASE REFER TO NUTRITION PROGRESS NOTE UNDER CARE ACTIVITY FOR ESTIMATED NUTRITION NEEDS. RD RECOMMENDATIONS: 1. RECOMMEND CONTINUE CCHO 60 G, PUREE DIET TOLERATED 2. ADVANCE NUTRITION SUPPORT: PPN D 12.5%, AA 4.25% @ 60 ML/HR WITH 10% LIPIDS AT 125 ML VIA PERIPHERAL LINE, PER MD AND PHARMACIST. PROVIDES 1107 KCAL, 61 GM PROTEIN, TOTAL VOLUME 1440 ML, GIR 2.8 MG CHO/KG/MIN. MEETS 85% PT ENERGY NEEDS, 87% PT PROTEIN NEEDS 3. RD WILL F/U 2-3 DAYS; HIGH RISK. XIMENA ROSALES RD
[2018-03-05] MEDS ORDERED: LORazepam 2 MG/ML VIAL IVP SCH (14:09)
--- NOTE | 2018-03-05 14:39 | NUR ---
Spoke to Kenzie at [facility] and faxed transfer back agreement form and was signed by Nina, Director of case picker and was faxed back to her at [phone]. faxed received and reviewed. Kenzie called back and confirmed transfer on Thursday, will call charge nurse on Thursday to release the bed number and number to call report. Charge nurse Param nina.
[2018-03-05] MEDS: CHLORHEXADINE GLUC 2% CLOTH TP SCH (15:00)
[2018-03-05] MEDS: MUPIROCIN 2% OINT 22 GM TUBE TP SCH (15:00)
--- NOTE | 2018-03-05 15:00 | NUR ---
CAME BACK FROM LUNCH BREAK, HEARD THAT PT REFUSED CENTRAL LINE INSERTION, PT'S BROTHER AT BEDSIDE AT THIS TIME.
--- NOTE | 2018-03-05 15:37 | NUR ---
[facility] ambulance placed on will call for thursday03/07/18. will call back [facility] on thursday to give the room number at [facility]. address at [address] [id number]. [phone] Kenzie at [facility]
[2018-03-05 16:00] VITALS: BP 137/84
[2018-03-05] MEDS: ONDANSETRON 4 MG/2 ML VIAL IVP PRN (17:59)
--- NOTE | 2018-03-05 18:15 | NUR ---
PT SWEATING WHILE TOUCH PT'S HAIR, BP STABLE, O2 SATS 92 %, PT COMPLAIN HOT BUT CHECKED TEMP 97F, pt does not want to covered by blanket. daughter at bedside. aware.
--- NOTE | 2018-03-05 19:25 | NUR ---
RECEIVED FROM AM RN IN BED SLEEPING. NO RESTLESSNESS NOTED. TELEMETRY MONITORING. CALL LIGHT WITH IN REACH. AFEBRILE. NEEDS WILL BE ANTICIPATED AND WILL BE MET. AFEBRILE. ABLE TO USE CALL LIGHT FOR HELP AND ABLE TO VERBALIZE NEEDS.
[2018-03-05 20:06] VITALS: BP 122/76
[2018-03-05] MEDS: MULTIVITAMIN-12 10 ML in DEXTROSE 50% 480 ML, AMINO ACIDS 8.5% 480 ML IV SCH ×3 (21:18)
--- NOTE | 2018-03-05 21:42 | NUR ---
ASLEEP EASILY AWAKENS RESPONSIVE TO MATERIAL PREPARATION WORKER VERBAL COMMANDS NO APPARENT PULMONARY DISTRESS NOTED PATIENT DENIES SOB GOOD CHEST RISE MASIMO RADICAL-7 CONTINUOS PULSE OXIMETER AT BEDSIDE ON AND FUNCTIONING WELL LOW SATURATION ALARM SET AT 92% [facility] BIPAP IN ROOM
--- NOTE | 2018-03-05 22:34 | NUR ---
SLEEPING AT THIS TIME. NO SOB. RESPIRATORY THERAPIST IN HERE TO CHECK ON PT. PT. WAKES UP WHEN TOUCHED OR CALLED BY NAME. TELEMETRY MONITORING. TPN INFUSING WELL. NO RESTLESSNESS AT THIS TIME. WILL KEEP COMFORTABLE , DRY AND WARM. CALL LIGHT ALWAYS AT BEDSIDE REACHABLE BY PT.
[2018-03-06 00:23] VITALS: BP 101/65
[2018-03-06] MEDS: BLOOD GLUCOSE MONITORING 1 DEV DEV MC SCH ×4 (00:33→18:01)
[2018-03-06] MEDS: HYDROmorphone 2 MG TAB PO SCH ×4 (00:33→17:19)
--- NOTE | 2018-03-06 00:37 | NUR ---
PT. AWAKE AND STATED SHE IS IN PAIN . MEDICATED WITH DILAUDID P.O. ORDERED. TELEMETRY MONITORING. TURNED TO SIDES Q 2H. PILLOW SUPPORT TO PRESSURE AREAS.
--- NOTE | 2018-03-06 02:30 | NUR ---
TURNED BY CNAS. PILLOW SUPPORT TO PRESSURE AREAS. ABLE TO TURN SELF. NO COMPLAINTS DONE.
--- NOTE | 2018-03-06 04:00 | NUR ---
SLEEPING WELL. WAKES UP EASILY WHEN TOUCHED. NO COMPLAINTS OF SOB. NO NOTED RESTLESSNESS. TELEMETRY MONITORING.
[2018-03-06 04:43] VITALS: BP 117/72
[2018-03-06] MEDS: PIPER/TAZO 2.25GM/D5W PREMIX 50 ML IV SCH ×3 (05:26→21:10)
--- NOTE | 2018-03-06 05:59 | NUR ---
MEDICATED WITH DILAUDID P.O. PAIN RELIEVER. ABLE TO VERBALIZE WELL. A/O X 4 WITH FORGETFULNESS AT TIMES.
--- NOTE | 2018-03-06 06:43 | NUR ---
SLEEPING AT THIS TIME. NO RESTLESSNESS. NEEDS MET. ABLE TO USE CALL [facility] FOR HELP AT ALL TIMES.
--- NOTE | 2018-03-06 07:21 | NUR ---
PT STATED SHE DID NOT WANT TO WEAR THE OXYMIZER DUE TO DISCOMFORT. PLACED PT ON NC @ 3L WITH HUMIDIFIER. SP02 96% AND HR 88. PULSE OX IN ROOM AND BIPAP IN ROOM. GOOD SYMMETRICAL CHEST RISE. NO RESPIRATORY DISTRESS OR SOB NOTED. WILL CONTINUE TO MONITOR.
--- NOTE | 2018-03-06 07:30 | NUR ---
ENDORSEMENT RECEIVED FROM STATE TROOPER NURSE. PATIENT IS AWAKE, ALERT. COMPLAINED OF DIFFICULTY BREATHING ON NASAL CANULA. PATIENT WAS PLACED BACK ON OXIMIZER AT 3L. SKIN DRY AND WARM. MEDI PORT PATENT AND INTACT. DENIED PAIN, SOB AT THIS TIME. PATIENT REQUESTED TO BE PUT BACK ON SOLID FOOD, WILL NOTIFY MD. TPN IS INFUSING AT 40ML/HR. PLAN OF CARE WAS DISCUSSED WITH PATIENT. BED AT LOW POSITION, SIDE RAILS UP. CALL LIGHT WITHIN REACH.
[2018-03-06 08:00] VITALS: BP 118/66
[2018-03-06] MEDS: SENNA 8.6 MG TAB PO SCH (09:00)
[2018-03-06] MEDS: DOCUSATE SODIUM 100 MG GELCAP PO SCH ×3 (09:00→20:51)
[2018-03-06] MEDS: ACETAMINOPHEN 325 MG TAB PO PRN ×2 (09:02→20:48)
[2018-03-06] MEDS: SUCRALFATE 1 GM TAB PO SCH (09:03)
[2018-03-06] MEDS: FUROSEMIDE 20 MG TAB PO SCH (09:03)
[2018-03-06] MEDS: METOPROLOL SUCCINATE 50 MG TABER PO SCH (09:03)
[2018-03-06] MEDS: AMITRIPTYLINE 10 MG TAB PO SCH (09:04)
[2018-03-06] MEDS: PANTOPRAZOLE 40 MG TABEC PO SCH (09:04)
[2018-03-06] MEDS: ATORVASTATIN 20 MG TAB PO SCH (09:04)
[2018-03-06] MEDS: DULOXETINE 20 MG PO SCH ×2 (09:19→20:48)
[2018-03-06] MEDS: ALPRAZolam 0.25 MG TAB PO PRN ×2 (09:19→21:02)
[2018-03-06] MEDS: HYDROcodone/APAP 10/325 MG 1 TAB TAB PO PRN (09:19)
--- NOTE | 2018-03-06 09:20 | NUR ---
PATIENT COMPLAINED OF HEADACHE, ABDOMINAL PAIN. OFFERED PAIN MEDICATION TO THE PATIENT. PATIENT REQUESTED TO HAVE TYLENOL INSTEAD. TYLENOL WAS GIVEN PER ORDER. PATIENT AND DAUGHTER REQUESTED TO HAVE DILAUDID, EXPLAINED TO THE PATIENT THAT IT IS NOT DUED TO 1200. PATIENT REQUESTED NORCO INSTEAD. COMPLAINED OF ANXIETY, REQUESTING XANAX. MED WAS GIVEN PER ORDER.
[2018-03-06 10:13] LABS: BASOPHILS % (AUTO) 0.2 % (0.0-2.0); EOSINOPHILS # (AUTO) 0.2 K/uL (0-0.4); HEMATOCRIT 29.1 % (36-48); HEMOGLOBIN 9.2 g/dL (12.0-16.0); LYMPHOCYTES # (AUTO) 0.9 K/uL (2.5-16.5); LYMPHOCYTES % (AUTO) 10.7 % (20.5-51.1); MEAN CORPUSCULAR HEMOGLOBIN 26 pg (27-31); MEAN CORPUSCULAR HGB CONC 32 g/dL (33-37); MEAN CORPUSCULAR VOLUME 82.7 fL (80-94); MONOCYTES # (AUTO) 0.7 K/uL (0.8-1.0); MONOCYTES % (AUTO) 8.3 % (1.7-9.3); NEUTROPHILS # (AUTO) 6.3 K/uL (1.8-7.7); NEUTROPHILS % (AUTO) 77.8 % (42.2-75.2); PLATELET COUNT (AUTO) 399 K/uL (140-450); RED BLOOD CELL COUNT(AUTO) 3.52 MIL/uL (4.20-5.40); RED CELL DISTRIBUTION WIDTH 26.3 % (11.6-13.7); WHITE BLOOD COUNT (AUTO) 8.1 K/uL (4.8-10.8)
[2018-03-06 10:30] LABS: MAGNESIUM 1.7 mg/dL (1.8-2.4); PHOSPHORUS 3.3 mg/dL (2.5-4.9)
[2018-03-06 10:31] LABS: ALBUMIN 2.1 g/dL (3.4-5.0); ANION GAP 9.3 (8-16); ASPARTATE AMINOTRANSFERASE 27 U/L (15-37); CARBON DIOXIDE 32.8 mmol/L (21-32); CHLORIDE 99 mmol/L (98-107); CREATININE 0.4 mg/dL (0.6-1.3); GLUCOSE 185 mg/dL (74-106); POTASSIUM 4.1 mmol/L (3.5-5.1); SODIUM SERUM 137 mmol/L (136-145); TOTAL BILIRUBIN 0.2 mg/dL (0.0-1.0); UREA NITROGEN, BLOOD 18 mg/dL (7-18)
--- NOTE | 2018-03-06 11:53 | NUR ---
PATIENT SLEEPING COMFORTABLY, EASILY AROUSABLE BY NAME. RESPIRATIONE EVEN, UNLABOR ON 3L OXIMIZER. NO DISTRESS NOTED AT THIS TIME. CALL LIGHT WITHIN REACH
[2018-03-06 12:00] VITALS: BP 95/53
--- NOTE | 2018-03-06 14:00 | NUR ---
DR. MORALES WAS MADE AWARE OF MAGNESIUM LVL 1.7, WILL MEDICATE PER ORDER
[2018-03-06] MEDS ORDERED: MAGNESIUM OXIDE 400 MG TAB PO SCH (14:25)
[2018-03-06] MEDS: MUPIROCIN 2% OINT 22 GM TUBE TP SCH (14:28)
[2018-03-06] MEDS: CHLORHEXADINE GLUC 2% CLOTH TP SCH (14:28)
[2018-03-06 16:00] VITALS: BP 134/68
--- NOTE | 2018-03-06 16:24 | NUR ---
PATIENT AWAKE, ALERT. RESPIRATION EVEN, UNLABOR ON 3L OXIMIZER. ORAL CARE WAS PROVIDED. DENIED PAIN AT THIS TIME. NO DISTRESS NOTED. CALL LIGHT WITHIN REACH
--- NOTE | 2018-03-06 17:46 | NUR ---
TITRATED PT TO 2L VIA OXY. SP02 99 HR 88 RR 14. WILL CONTINUE TO MONITOR
--- NOTE | 2018-03-06 18:44 | NUR ---
PATIENT AWAKE, ALERT. RESPIRATION EVEN, UNLABOR ON 2L OXYMIZER. MEDI PORT PATENT AND INTACT. NO DISTRESS NOTED AT THIS TIME. CALL LIGHT WITHIN REACH.
--- NOTE | 2018-03-06 19:24 | NUR ---
ENDORSEMENT GIVEN TO THE OCC THERAPIST NURSE. PATIENT IS STABLE A THIS TIME
--- NOTE | 2018-03-06 19:25 | NUR ---
RECEIVED REPORT FROM DAY SHIFT NURSE AMARIS-NIKKI. PT RESTING IN BED AT THIS TIME. AOX2-CONFUSED. ON 2L OXYMIZER, MEDIPORT WITH TPN RUNNING AT 40ML/HR. O2 SAT AT 100, CONTINUOUS MONITORING. LEFT ARM SKIN TEAR- WITH FEGRIDERM. PT BEDBOUND. USING BEDPAN. DISCUSSED PLAN OF CARE, PT VERBALIZED UNDERSTANDING. BED IN LOWEST POSITION, BED BREAKS ON. HOB ELEVATED TO DECREASE RESPIRATORY DISTRESS INSTRUCTED BY RT. BED SIDE TABLE AND CALL LIGHT WITHIN REACH. WILL CONTINUE TO MONITOR.
[2018-03-06 20:00] VITALS: BP 134/62
[2018-03-06] MEDS ORDERED: MULTIVITAMIN-12 10 ML in DEXTROSE 50% 480 ML, AMINO ACIDS 8.5% 480 ML IV SCH ×3 (20:00)
[2018-03-06] MEDS: ZOLPIDEM 10 MG TAB PO PRN (20:47)
--- NOTE | 2018-03-06 20:50 | NUR ---
SCHEDULED MEDICATION GIVEN. PT TOLERATED WELL. PT REQUESTED AMBIEN AND TYLENOL FOR HEADACHE. PT ALSO REFUSED COLACE BECAUSE SHE STATED SHE, "HAD AN ACCIDENT." NO S/S OF RESPIRATORY DISTRESS OR DISCOMFORT AT THIS TIME. WILL CONTINUE TO MONITOR.
--- NOTE | 2018-03-06 22:00 | NUR ---
TPN HUNG LATE BECAUSE OTHER BAG OF TPN WAS STILL INFUSING. NEW TPN BAG HUNG. PT TOLERATING WELL. WILL CONTINUE TO MONITOR.
[2018-03-07] VITALS: BP 107/60
--- NOTE | 2018-03-07 | NUR ---
VITAL SIGNS TOLERATED WELL. PT CONFUSED AT THIS TIME. AT FIRST WANTING HER SCHEDULED DILAUDID PILL AND THEN REFUSING THEM STATING "I AM NOT IN PAIN RIGHT NOW." BLOOD GLUCOSE 139. NO INSULIN NEEDED. WILL CONTINUE TO MONITOR. RT HUI CAME INTO ROOM AND CHECKED HER O2SATS, AND OXYMIZER. INCREASED LEVEL FROM 2L TO 4L. PT O2SATS INCREASED TO 97. WILL CONTINUE TO MONITOR.
[2018-03-07] MEDS: BLOOD GLUCOSE MONITORING 1 DEV DEV MC SCH ×3 (00:09→12:00)
--- NOTE | 2018-03-07 01:00 | NUR ---
PT CONFUSED. TOOK OFF PULSE OX FROM [facility] AND CALLING OUT TO HER MOM TO GO HOME. RE-ORIENTED PT BACK TO HOSPITAL SETTING. REMINDER HER THAT SHE WILL BE LEAVING TOMORROW TO A HIGHER LEVEL OF CARE FACILITY. WILL CONTINUE TO MONITOR.
[2018-03-07] MEDS: HYDROcodone/APAP 10/325 MG 1 TAB TAB PO PRN ×2 (02:02→09:35)
--- NOTE | 2018-03-07 02:25 | NUR ---
CALLED JEN. PT HAS BEEN O2SAT LOW. MACHINE BEEPING BECAUSE OF LOW 02SAT LEVELS OR DIFFICULTY READING. KEEPING PT AWAKE. RT TRIED TO USE BIPAP AND NON-REBREATHER MASK BUT PT REFUSED SAYING SHE IF CLAUSTROPHOBIC. NAIL MOHAWK POSSIBLY MAKING IT DIFFICULT FOR MACHINE TO READ O2SATS. TOE NAILS PAINTED TOO. NEED NAIL MOHAWK REMOVER. MACHINE NOW READING O2SATS AT 96-97. WILL CONTINUE TO MONITOR.
--- NOTE | 2018-03-07 02:25 | NUR ---
PATIENT COMPLAINING OF SHORTNESS OF BREATH AND REFUSED BIPAP BECAUSE SHE SAID SHE IS CLAUSTRAPHOBIC. SHE WILL NOT WEAR ANY MASK (VENTI-MASK). RT INCREASED FIO2 AND KEEP PATIENT ON OXYMIZER TO 8LPM. PATIENT SATURATION INCREASED TO 94 HEART RATE 88. PATIENT STABLE AT THIS TIME.
[2018-03-07 04:00] VITALS: BP 127/84
[2018-03-07] MEDS: PIPER/TAZO 2.25GM/D5W PREMIX 50 ML IV SCH ×2 (05:09→12:02)
[2018-03-07] MEDS: HYDROmorphone 2 MG TAB PO SCH ×3 (05:09→12:02)
--- NOTE | 2018-03-07 05:35 | NUR ---
SPOKE WITH DR. SMITH BECAUSE PT IS EXPERIENCING AN INCREASE OF ANXIETY. OK FOR PT TO TAKE XANAX TO DECREASE HER ANXIETY.
--- NOTE | 2018-03-07 06:15 | NUR ---
PT REQUESTED TO SIT IN A CHAIR BECAUSE HER BACK WAS HURTING. ASSISTED PT. PT WAS ABLE TO STAND BUT WAS UNSTABLE. PT ONLY SAT ON THE CHAIR FOR 10 MINUTES BEFORE FEELING DIZZY AND WANTING TO GO BACK TO BED. WILL CONTINUE TO MONITOR.
--- NOTE | 2018-03-07 07:15 | NUR ---
ENDORSED PT CARE TO DAY SHIFT NURSE AMARIS. PT IN STABLE CONDITION.
[2018-03-07] MEDS: ALPRAZolam 0.25 MG TAB PO PRN (07:20)
--- NOTE | 2018-03-07 07:50 | NUR ---
ENDORSEMENT RECEIVED FROM STACK CLERK. PATIENT IS AWAKE, ALERT. RESPIRATION EVEN, UNLABOR ON 7L OXYMIZER. SKIN DRY AND WARM. MEDI PORT PATENT AND INTACT. DENIED PAIN, SOB AT THIS TIME, STATED "SHE FEELS A LOT BETTER TODAY". VS IS STABLE. PLAN OF CARE WAS DISCUSSED WITH PATIENT. BED AT LOW POSITION, SIDE RAILS UP. CALL LIGHT WITHIN REACH.
[2018-03-07 08:00] VITALS: BP 111/66
--- NOTE | 2018-03-07 08:20 | NUR ---
PATIENT AWAKE AND ALERT. 02 SAT 100% ON 7L OXYMIZER. NO DISTRESS NOTED AT THIS TIME. WILL CONTINUE TO MONITOR.
--- NOTE | 2018-03-07 08:30 | NUR ---
PATIENT COMPLAINED OF "PAIN ON THE SIDE WHERE THE DRAIN WAS AT" 7/10, NON RADIATING. WILL MEDICATE PER ORDER.
[2018-03-07] MEDS: DOCUSATE SODIUM 100 MG GELCAP PO SCH (09:00)
[2018-03-07] MEDS: SENNA 8.6 MG TAB PO SCH (09:00)
--- NOTE | 2018-03-07 09:07 | NUR ---
CALLED [facility] LUI [phone] TALKED TO MARY BED COORDINATOR STATED WILL CALL BACK FOR BED
[2018-03-07] MEDS: SUCRALFATE 1 GM TAB PO SCH (09:28)
[2018-03-07] MEDS: PANTOPRAZOLE 40 MG TABEC PO SCH (09:32)
[2018-03-07] MEDS: FUROSEMIDE 20 MG TAB PO SCH (09:32)
[2018-03-07] MEDS: DULOXETINE 20 MG PO SCH (09:32)
[2018-03-07] MEDS: ATORVASTATIN 20 MG TAB PO SCH (09:32)
[2018-03-07] MEDS: METOPROLOL SUCCINATE 50 MG TABER PO SCH (09:32)
[2018-03-07] MEDS: ONDANSETRON 4 MG/2 ML VIAL IVP PRN (09:34)
[2018-03-07] MEDS: AMITRIPTYLINE 10 MG TAB PO SCH (10:17)
--- NOTE | 2018-03-07 11:14 | NUR ---
PATIENT IS SLEEPING COMFORTABLY. RESPIRATION EVEN, UNLABOR ON 7L OXYMIZER. NO DISTRESS NOTED AT THIS TIME. CALL LIGHT WITHIN REACH
[2018-03-07 12:00] VITALS: BP 152/73
[2018-03-07] MEDS ORDERED: DEXTROSE 10% 1,000 ML IV SCH (12:00)
--- NOTE | 2018-03-07 12:13 | NUR ---
CALLED MARY AGAIN AT [facility] SHE STATED SHE DOESN'T HAVE A BED AT THIS TIME BUT SHE WILL HAVE A BED TO DAY AND WILL CALL BACK STEFANO
--- NOTE | 2018-03-07 15:17 | NUR ---
I GOT A CALL FROM [facility] BED COORDINATOR PATIENT CAN GO TO [address] . PHONE # [phone] TO CALL FOR REPORT AND THE ACCEPTING DR WILL BE YUNIOR UREÑA
[2018-03-07] MEDS: CHLORHEXADINE GLUC 2% CLOTH TP SCH (15:47)
[2018-03-07] MEDS: MUPIROCIN 2% OINT 22 GM TUBE TP SCH (15:47)
--- NOTE | 2018-03-07 15:48 | NUR ---
REPORT WAS GIVEN TO EMT AT BEDSIDE. DEXTRO% 10 WAS HUNG PER ORDER. MEDIPORT PATENT AND INTACT. WOUND PICTURES WERE TAKEN. FRENCH WEAVER WAS REMOVED. PATIENT'S SON, GIRISH IS AT BEDSIDE. ALL BELONGINGS AND HOME MEDS WERE TAKEN WITH THE FAMILY. CALLED AND GAVE REPORT TO GANGA JORDAN AT [facility]. PATIENT IS STABLE AT THIS TIME
== END 2018-03-07 15:54 | disposition short-term general hospital (02) | DRG 871 ==
LOC: MED 22:46 → MTU 03-03 00:51
PROVIDERS: ADMIT Family Medicine Sports Medicine; ATTEND Family Medicine Sports Medicine
PROC: 5A09357 Assistance with Respiratory Ventilation, Less than 24 Consecutive Hours, Continuous Positive Airway Pressure (ICD-10-PCS; principal; 2018-03-03)
DX: A41.9 Sepsis, unspecified organism (principal); J69.0 Pneumonitis due to inhalation of food and vomit; J96.21 Acute and chronic respiratory failure with hypoxia; E43 Unspecified severe protein-calorie malnutrition; J15.6 Pneumonia due to other Gram-negative bacteria; N17.0 Acute kidney failure with tubular necrosis; C25.9 Malignant neoplasm of pancreas, unspecified; I47.1 Supraventricular tachycardia; E11.65 Type 2 diabetes mellitus with hyperglycemia; G93.41 Metabolic encephalopathy; I50.43 Acute on chronic combined systolic (congestive) and diastolic (congestive) heart failure; Z68.1 Body mass index [BMI] 19.9 or less, adult; I24.9 Acute ischemic heart disease, unspecified; D64.9 Anemia, unspecified; E83.42 Hypomagnesemia; E87.6 Hypokalemia; F41.9 Anxiety disorder, unspecified; F43.9 Reaction to severe stress, unspecified; I25.10 Atherosclerotic heart disease of native coronary artery without angina pectoris; I25.5 Ischemic cardiomyopathy; R80.9 Proteinuria, unspecified; M79.7 Fibromyalgia; J44.9 Chronic obstructive pulmonary disease, unspecified; Z95.810 Presence of automatic (implantable) cardiac defibrillator; Z88.5 Allergy status to narcotic agent; Z88.8 Allergy status to other drugs, medicaments and biological substances; Z91.018 Allergy to other foods; Z79.899 Other long term (current) drug therapy; Z86.73 Personal history of transient ischemic attack (TIA), and cerebral infarction without residual deficits; Z90.710 Acquired absence of both cervix and uterus; I25.2 Old myocardial infarction; Z85.42 Personal history of malignant neoplasm of other parts of uterus; Z87.891 Personal history of nicotine dependence
CPT/HCPCS: 36415; 71045; 80053; 82948; 83735; 83880; 84100; 84134; 84478; 84484; 85025; 85610; 85730; 87040; 87081; 93005; 94640; 96374; 99285; A9153; J1642; J1644; J1815; J1940; J2001; J2405; J2543; J3010; J3475; J3480; J7030; J7613; Q0092